=== PATIENT | male | born 1975 | race Caucasian/White ===

== ENCOUNTER 2021-05-29 05:20 | Inpatient (IN) | payer MEDICAID ==
[2021-05-29] MEDS ORDERED: Celecoxib 200 MG Cap PO ONE ×3 (05:49→06:32)
[2021-05-29] MEDS ORDERED: Acetaminophen 500 MG Tab PO ONE (06:00)
[2021-05-29] MEDS ORDERED: Scopolamine 1.5 MG Transdermal Patch TOP ONE (06:00)
[2021-05-29 06:01] LABS: HEMOGLOBIN A1C 5.9 % (4.5-6.2)
[2021-05-29] MEDS ORDERED: Dextrose 5%-Lactated Ringers 1,000 ML IV SCH ×2 (06:30→11:45)
[2021-05-29] MEDS ORDERED: cefOXitin 2 GM Vial ONE (06:47)
[2021-05-29] MEDS ORDERED: cefOXitin 2 GM in Sodium Chloride 0.9% 50 ML IV ONE (07:00)
[2021-05-29] MEDS ORDERED: fentaNYL 250 MCG/5 ML SDV ONE ×2 (07:06→07:37)
[2021-05-29] MEDS ORDERED: Glycopyrrolate 0.2 MG/ML 5 ML MDV ONE (07:07)
[2021-05-29] MEDS ORDERED: Rocuronium 50 MG/5 ML Vial ONE ×2 (07:07→07:51)
[2021-05-29] MEDS ORDERED: Ondansetron 4 MG/2 ML SDV ONE (07:07)
[2021-05-29] MEDS ORDERED: Propofol 200 MG/20 ML SDV ONE (07:07)
[2021-05-29] MEDS ORDERED: Succinylcholine 200 MG/10 ML MDV ONE (07:07)
[2021-05-29] MEDS ORDERED: Dexamethasone 4 MG/ML SDV ONE (07:07)
[2021-05-29] MEDS ORDERED: Neostigmine Methylsulfate 1 MG/ML 5 ML Syringe ONE (07:07)
[2021-05-29] MEDS ORDERED: Ketamine 20 MG in Sodium Chloride 0.9% 19.8 ML IV SCH (07:30)
[2021-05-29] MEDS ORDERED: Ketamine 500 MG/5 ML MDV IV SCH (07:30)
[2021-05-29] MEDS ORDERED: cefOXitin 2 GM Vial IRR ONE (08:16)
[2021-05-29] MEDS ORDERED: ePHEDrine 50 MG/ML SDV ONE (08:36)
[2021-05-29] MEDS ORDERED: Sugammadex Sodium 200 MG/2 ML VIAL ONE (09:17)
[2021-05-29] MEDS ORDERED: fentaNYL 100 MCG/2 ML SDV IVPUSH ONE (10:15)
[2021-05-29] MEDS ORDERED: hydrOXYzine HCL 100 MG/2 ML SDV IM ONE (10:15)
[2021-05-29] MEDS ORDERED: Cyclobenzaprine 10 MG Tab PO PRN (11:48)
[2021-05-29] MEDS ORDERED: Acetaminophen 500 MG Tab PO PRN (12:00)
[2021-05-29] MEDS ORDERED: Labetalol 20 MG/4 ML Syringe IVPUSH PRN (12:00)
[2021-05-29] MEDS ORDERED: hydrOXYzine HCL 100 MG/2 ML SDV IM PRN (12:00)
[2021-05-29] MEDS ORDERED: diphenhydrAMINE 50 MG/ML SDV IVPUSH PRN (12:00)
[2021-05-29] MEDS ORDERED: Ondansetron 4 MG/2 ML SDV IVPUSH PRN (12:00)
[2021-05-29] MEDS ORDERED: Metoclopramide 10 MG/2 ML SDV IVPUSH PRN (12:00)
[2021-05-29] MEDS ORDERED: HYDROmorphone 0.5 MG/0.5 ML Syringe IVPUSH PRN (12:00)
[2021-05-29] MEDS: HYDROmorphone 1 MG/ML Syringe IV PRN ×2 (12:03→14:18)
[2021-05-29] MEDS: cefOXitin 2 GM in Sodium Chloride 0.9% 50 ML IV SCH ×2 (13:52→19:55)
[2021-05-29] MEDS: Pantoprazole 40 MG Vial IVPUSH SCH (13:53)
[2021-05-29] MEDS: Acetaminophen 500 MG Tab PO SCH ×2 (13:54→21:04)
[2021-05-29] MEDS: Heparin Sodium 5,000 Units/ML Vial SUBCUT SCH (15:14)
[2021-05-29] MEDS: MVI, Adult with Vitamin K 10 ML, Thiamine 200 MG, Zinc/Copper/Manganese/Selenium 1 ML i... IV SCH ×4 (15:19)
[2021-05-29] MEDS: oxyCODONE 5 MG Tab PO PRN (16:58)
[2021-05-29] MEDS: Zolpidem 5 MG Tab PO PRN (20:00)
[2021-05-29] MEDS: traZODone 50 MG Tab PO SCH (20:00)
[2021-05-29] MEDS: Citalopram 20 MG Tab PO SCH (20:00)
[2021-05-29] MEDS: amLODIPine 5 MG Tab PO SCH (20:00)
[2021-05-29] MEDS: Celecoxib 200 MG Cap PO SCH (20:00)
[2021-05-29] MEDS: Hydrochlorothiazide 25 MG Tab PO SCH (20:01)
[2021-05-29] MEDS: Lisinopril 20 MG Tab PO SCH (20:01)
[2021-05-29] MEDS: Tamsulosin 0.4 MG Cap.ER PO SCH (20:01)
[2021-05-30] MEDS: cefOXitin 2 GM in Sodium Chloride 0.9% 50 ML IV SCH ×3 (01:02→14:28)
[2021-05-30] MEDS: Heparin Sodium 5,000 Units/ML Vial SUBCUT SCH ×3 (01:02→16:44)
[2021-05-30] MEDS ORDERED: Iopamidol 612 MG/ML 50 ML SDV PO STA (03:54)
[2021-05-30] MEDS: Acetaminophen 500 MG Tab PO SCH ×3 (05:38→21:05)
[2021-05-30] MEDS ORDERED: Ondansetron 4 MG Tab.DIS PO PRN (06:57)
[2021-05-30] MEDS ORDERED: hydrOXYzine HCl 25 MG Tab PO PRN (06:58)
[2021-05-30] MEDS: Dextrose 5%-Lactated Ringers 1,000 ML IV SCH (07:09)
[2021-05-30] MEDS: SCOPOLAMINE PATCH CHECK TOP SCH (08:16)
[2021-05-30] MEDS: Celecoxib 200 MG Cap PO SCH ×2 (08:23→20:20)
[2021-05-30] MEDS: oxyCODONE 5 MG Tab PO PRN (10:32)
[2021-05-30] MEDS: Pantoprazole 40 MG Vial IVPUSH SCH (13:52)
[2021-05-30] MEDS: MVI, Adult with Vitamin K 10 ML, Thiamine 200 MG, Zinc/Copper/Manganese/Selenium 1 ML i... IV SCH ×4 (16:44)
[2021-05-30] MEDS: traMADol 50 MG Tab PO PRN (18:11)
[2021-05-30] MEDS: Citalopram 20 MG Tab PO SCH (20:20)
[2021-05-30] MEDS: Lisinopril 20 MG Tab PO SCH (20:20)
[2021-05-30] MEDS: Tamsulosin 0.4 MG Cap.ER PO SCH (20:20)
[2021-05-30] MEDS: traZODone 50 MG Tab PO SCH (20:20)
[2021-05-30] MEDS: amLODIPine 5 MG Tab PO SCH (20:21)
[2021-05-30] MEDS: Hydrochlorothiazide 25 MG Tab PO SCH (20:21)
[2021-05-30] MEDS: Zolpidem 5 MG Tab PO PRN (20:25)
[2021-05-31] MEDS: Heparin Sodium 5,000 Units/ML Vial SUBCUT SCH ×2 (00:52→07:51)
[2021-05-31] MEDS: Dextrose 5%-Lactated Ringers 1,000 ML IV SCH (02:49)
[2021-05-31] MEDS: Acetaminophen 500 MG Tab PO SCH ×2 (05:58→08:13)
[2021-05-31] MEDS: Celecoxib 200 MG Cap PO SCH (08:13)
[2021-05-31] MEDS: SCOPOLAMINE PATCH CHECK TOP SCH (08:14)
[2021-05-31] MEDS ORDERED: Cyanocobalamin (Vitamin B12) 1,000 MCG/ML SDV IM ONE (09:00)
[2021-05-31] MEDS ORDERED: Magnesium Hydroxide 400 MG/5 ML Susp 30 ML Cup PO ONE (10:50)
[2021-05-31] MEDS: traMADol 50 MG Tab PO PRN (11:13)
== END 2021-05-31 12:45 | disposition home or self-care (01) | DRG 619 ==
LOC: JP.SDS 05:20 → EDSTATUS 07:15 → JP.MS 09:35 → UNDOADMIN 11:38 → JP.MS 11:38
PROVIDERS: ADMIT Surgery; ATTEND Surgery
PROC: 0D164ZA Bypass Stomach to Jejunum, Percutaneous Endoscopic Approach (ICD-10-PCS; principal; 2021-05-29)
PROC: 0DB64ZZ Excision of Stomach, Percutaneous Endoscopic Approach (ICD-10-PCS; 2021-05-29)
PROC: 0FB24ZX Excision of Left Lobe Liver, Percutaneous Endoscopic Approach, Diagnostic (ICD-10-PCS; 2021-05-29)
PROC: 0DB84ZZ Excision of Small Intestine, Percutaneous Endoscopic Approach (ICD-10-PCS; 2021-05-29)
PROC: 0JB63ZZ Excision of Chest Subcutaneous Tissue and Fascia, Percutaneous Approach (ICD-10-PCS; 2021-05-29)
DX: E66.01 Morbid (severe) obesity due to excess calories (principal); K55.051 Focal (segmental) acute (reversible) ischemia of intestine, part unspecified; R16.0 Hepatomegaly, not elsewhere classified; K44.9 Diaphragmatic hernia without obstruction or gangrene; D17.1 Benign lipomatous neoplasm of skin and subcutaneous tissue of trunk; G47.33 Obstructive sleep apnea (adult) (pediatric); I10 Essential (primary) hypertension; Z88.0 Allergy status to penicillin; Z88.8 Allergy status to other drugs, medicaments and biological substances
CPT/HCPCS: 36415; 74240; 74240-26; 82947; 83036; 83735; 84075; 86850; 86900; 86901; 88307; 88313; A9270-GY; C9113; J0171; J0330; J0694; J1100; J1170; J1644; J2405; J2704; J2710; J2795; J3010; J3410; J3411; J3420; J3490; J7121; Q9967